=== PATIENT | female | born 1975 | race Caucasian/White ===

== ENCOUNTER → 2018-02-24 | Outpatient (CLI) | payer SELFPAY ==
[~2018-02-24] MED LIST: FLC150T PO; NYST1POW15 TOP; PRD10T PO; THYR120T2 PO
--- NOTE | 2018-02-24 12:08 | Diagnostic Imaging Report ---
PROCEDURE: US Thyroid. TECHNIQUE: Multiple real-time grayscale images were obtained of the thyroid in various projections. INDICATION: Thyroid enlargement on physical exam. Both lobes are small. The right lobe of the thyroid measures 3.2 x 0.7 x 0.9 cm, and the left lobe measures 2.7 x 0.5 x 0.6 cm. No discrete thyroid mass is detected. IMPRESSION: Small thyroid. No mass is detected. Dictated by: Dictated on workstation # [id number]
== END ==
LOC: RAD 11:05
PROVIDERS: ATTEND Family Medicine
DX: E07.9 Disorder of thyroid, unspecified (principal)
CPT/HCPCS: 76536

== ENCOUNTER → 2018-05-06 | Outpatient (CLI) | payer OTHER ==
--- NOTE | 2018-05-06 15:16 | Diagnostic Imaging Report ---
PROCEDURE: US left lower extremity venous. TECHNIQUE: Multiple real-time grayscale images were obtained over the left lower extremity in various projections. Additional duplex Doppler and color Doppler images were also obtained. INDICATION: Left leg swelling. The veins have good color filling and compressibility. There is normal spontaneous and augmented flow. IMPRESSION: Negative venous Doppler left leg. Dictated by: Dictated on workstation # [id number]
== END ==
LOC: RAD 12:58
PROVIDERS: ATTEND Nurse Practitioner Family
DX: M79.89 Other specified soft tissue disorders (principal)

== ENCOUNTER 2019-10-12 08:14 | Emergency (ER) | payer SELFPAY ==
[~2019-10-12] VITALS: Ht 157 cm; Wt 127.2 kg
[2019-10-12] MEDS ORDERED: RT-ALBUTEROL SULF 2.5 MG/3 ML PRE-MIX VIAL INH STA (08:40)
[2019-10-12] MEDS ORDERED: methylPREDNISolone 125 MG (Solu-MEDROL) VIAL IV STA (08:40)
[2019-10-12] MEDS ORDERED: RT-ALBUTEROL/IPRATROPIUM 3 ML (DUONEB) VIAL INH ONE (08:45)
[2019-10-12] MEDS ORDERED: DEXAMETHASONE 4 MG/ML SDV (DECADRON) IH ONE (08:45)
[2019-10-12 08:53] LABS: BASOPHILS # (AUTO) 0.1 10^3/uL (0.0-0.1); BASOPHILS % (AUTO) 0 % (0-10); EOSINOPHILS # (AUTO) 0.2 10^3/uL (0.0-0.3); EOSINOPHILS % (AUTO) 1 % (0-10); HEMATOCRIT 40 % (35-52); HEMOGLOBIN 11.4 G/DL (11.5-16.0); LYMPHOCYTES # (AUTO) 1.1 X 10^3 (1.0-4.0); LYMPHOCYTES % (AUTO) 9 % (12-44); MEAN CORPUSCULAR HEMOGLOBIN 21 PG (25-34); MEAN CORPUSCULAR HGB CONC 29 G/DL (32-36); MEAN CORPUSCULAR VOLUME 75 FL (80-99); MEAN PLATELET VOLUME 10.8 FL (7.4-10.4); MONOCYTES % (AUTO) 8 % (0-12); NEUTROPHILS # (AUTO) 9.8 X 10^3 (1.8-7.8); NEUTROPHILS % (AUTO) 81 % (42-75); PLATELET COUNT 452 10^3/uL (130-400)
[2019-10-12 08:59] LABS: PROTHROMBIN TIME PATIENT 13.6 SEC (12.2-14.7)
[2019-10-12 09:12] LABS: ABG BASE EXCESS 20.1 MMOL/L (-2.5-2.5); ABG OXYGEN SATURATION 97 % (94-100); ABG PO2 92 MMHG (79-93); ABG TCO2 48.7 MMOL/L (21.0-31.0)
[2019-10-12 09:13] LABS: ABG PCO2 76 MMHG (35-45); ALLENS TEST YES-POS; INSPIRED O2 4 L; PATIENT TEMP 36.5; VENTILATOR NO
[2019-10-12 09:14] LABS: ALANINE AMINOTRANSFERASE 50 U/L (0-55); ALKALINE PHOSPHATASE 102 U/L (40-136); BILIRUBIN,TOTAL 0.7 MG/DL (0.1-1.0); BUN/CREATININE RATIO 5; CALCIUM 10.1 MG/DL (8.5-10.1); CARBON DIOXIDE 39 MMOL/L (21-32); CHLORIDE 83 MMOL/L (98-107); CREATINE KINASE 31 U/L (29-168); CREATININE SERUM 0.75 MG/DL (0.60-1.30); GFR ESTIMATED > 60; GLUCOSE 146 MG/DL (70-105); POTASSIUM 3.4 MMOL/L (3.6-5.0); SODIUM 135 MMOL/L (135-145); TOTAL PROTEIN 8.6 GM/DL (6.4-8.2)
[2019-10-12 09:24] LABS: CREATINE KINASE MB 1.2 NG/ML (<6.6)
[2019-10-12 09:44] LABS: MAGNESIUM 2.1 MG/DL (1.6-2.4)
[2019-10-12 09:47] LABS: CLARITY,URINE CLEAR; COLOR,URINE AMBER; GLUCOSE, URINE (UA) NEGATIVE (NEGATIVE); KETONES,URINE TRACE (NEGATIVE); LEUKOCYTE ESTERASE ,URINE TRACE (NEGATIVE); NITRITE,URINE NEGATIVE (NEGATIVE); PH,URINE 6.5 (5-9); PROTEIN,URINE 2+ (NEGATIVE)
[2019-10-12 10:03] LABS: BACTERIA,URINE NEGATIVE /HPF; BILIRUBIN,URINE 1+ (NEGATIVE); WBC,URINE 0-2 /HPF
[2019-10-12 10:04] LABS: HYALINE CASTS, URINE 0-2 /LPF
--- NOTE | 2019-10-12 10:12 | Diagnostic Imaging Report ---
INDICATION: Shortness of air. TIME OF EXAMINATION: 9:23 AM. COMPARISON: No prior studies are available for comparison. FINDINGS: The heart is enlarged. There is central congestion. There are linear parenchymal densities identified in both mid and lower lung shannon, suggestive of some atelectasis or minimal infiltrate. No effusion is seen. The upper lung shannon are fairly clear although there may be some minimal patchy infiltrate in the right upper lobe. No pneumothorax is seen. IMPRESSION: Cardiomegaly and central congestion as well as bilateral patchy areas of infiltrate versus atelectasis. Dictated by: Dictated on workstation # [id number]
[2019-10-12] MEDS ORDERED: AZITHROMYCIN INJECTION 500 MG in NS (IVPB) 250 ML IV ONE (11:15)
[2019-10-12] MEDS ORDERED: FUROSEMIDE 40 MG/4 ML INJ (LASIX) IVP ONE (11:15)
[2019-10-12] MEDS ORDERED: CYCLOBENZAPRINE 10 MG (FLEXERIL) TAB PO SCH (11:15)
[2019-10-12] MEDS ORDERED: oxyCODONE/APAP 5/325MG (PERCOCET 5) TABLET PO ONE (11:15)
[2019-10-12] MEDS ORDERED: cefTRIAXone FOR IV USE 1,000 MG in WATER (STERILE) FOR INJECTION 10 ML IV ONE (11:15)
[2019-10-12 11:43] LABS: ABG BASE EXCESS 19.7 MMOL/L (-2.5-2.5); ABG OXYGEN SATURATION 99 % (94-100); ABG PCO2 69 MMHG (35-45); ABG PH 7.43 (7.37-7.43); ABG PO2 115 MMHG (79-93); ABG TCO2 47.4 MMOL/L (21.0-31.0)
[2019-10-12 11:46] LABS: ALLENS TEST YES-POS; PATIENT TEMP 99.5; VENTILATOR NO
[2019-10-12 11:47] LABS: INSPIRED O2 70% BIPAP
--- NOTE | 2019-10-12 12:28 | NUR ---
[facility] notified and will sent a unit as there are no [facility] units available.
--- NOTE | 2019-10-12 12:38 | NUR ---
Report called to Christina RAJPUT at [facility].
--- NOTE | 2019-10-12 12:49 | NUR ---
[facility] called back and advised they do not have a truck available to transport the patient. Juan Alberto with [facility] notified.
--- NOTE | 2019-10-12 13:40 | NUR ---
Lab drawn for repeat Trooponin.
[2019-10-12 14:02] VITALS: BP 144/93
[2019-10-12 14:15] LABS: ABG BASE EXCESS 21.1 MMOL/L (-2.5-2.5); ABG OXYGEN SATURATION 97 % (94-100); ABG PCO2 69 MMHG (35-45); ABG PH 7.45 (7.37-7.43); ABG PO2 87 MMHG (79-93)
[2019-10-12 14:18] LABS: ALLENS TEST YES-POS; INSPIRED O2 70%; PATIENT TEMP 37.4; VENTILATOR NO
--- NOTE | 2019-10-12 14:19 | NUR ---
[facility] arrived and is transporting the patient to [facility]. Patient placed on C-pap due to EMS not having Bipap.
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
== END 2019-10-12 14:22 | disposition short-term general hospital (02) ==
LOC: EDUNIT# 08:14 → ER 08:15
DX: J96.22 Acute and chronic respiratory failure with hypercapnia (principal); J96.21 Acute and chronic respiratory failure with hypoxia; J18.9 Pneumonia, unspecified organism; E66.01 Morbid (severe) obesity due to excess calories; R79.89 Other specified abnormal findings of blood chemistry; E03.9 Hypothyroidism, unspecified; Z68.43 Body mass index [BMI] 50.0-59.9, adult; Z99.81 Dependence on supplemental oxygen; Z88.0 Allergy status to penicillin; Z88.6 Allergy status to analgesic agent; Z88.5 Allergy status to narcotic agent; Z88.8 Allergy status to other drugs, medicaments and biological substances; Z93.0 Tracheostomy status; Z98.51 Tubal ligation status
CPT/HCPCS: 36415; 36600; 51702; 71045; 80053; 81000; 82550; 82553; 82805; 83605; 83735; 83874; 83880; 84484; 84703; 85025; 85610; 85730; 87040; 87804; 93005; 93041; 94640